=== PATIENT | male | born 1960 | race Caucasian/White ===

== ENCOUNTER 2017-01-31 07:56 | Day surgery (SDC) | payer BC ==
[2017-01-29 10:08] VITALS: BMI 28.0
[~2017-01-31 07:56] MED LIST: LACTATED RINGERS 1,000 ML IV SCH
[2017-01-31 08:18] VITALS: RESP 16; TEMP 97.8
[2017-01-31] MEDS ORDERED: LIDOCAINE 1% 20 ML VIAL (10MG/ML) FOR IV START INTRADERMA ONE (08:24)
[2017-01-31] MEDS ORDERED: PROPOFOL 10 MG/ML 20 ML VIAL IV ONE (09:16)
[2017-01-31] MEDS ORDERED: LIDOCAINE 1% INJ 10MG/ML (20 ML MDV) ONE (09:16)
--- NOTE | 2017-01-31 09:30 | P.GSHP ---
History of Present Illness H&P Date: 01/31/17 Chief Complaint: GERD, rectal bleeding Patient here today for upper and lower endoscopy. He has a history of reflux and recently was found to have heme positive stools. He admits to occasional rectal bleeding. No dysphagia. No family history of colon cancer. His last colonoscopy was normal and that was 7 years ago. Past Medical History Past Medical History: Hyperlipidemia, Hypertension Additional Past Medical History / Comment(s): GOUT History of Any Multi-Drug Resistant Organisms: None Reported Additional Past Surgical History / Comment(s): COLONOSCOPY. SINUS SX Past Anesthesia/Blood Transfusion Reactions: No Reported Reaction Past Psychological History: No Psychological Hx Reported Smoking Status: Former smoker Past Alcohol Use History: Rare Additional Past Alcohol Use History / Comment(s): QUIT SMOKING 1996 Past Drug Use History: None Reported - Past Family History Mother Family Medical History: No Reported History Medications and Allergies Home Medications Medication Instructions Recorded Confirmed Type Allopurinol [Zyloprim] 100 mg PO DAILY 01/29/17 01/31/17 History Aspirin [Adult Low Dose Aspirin EC] 81 mg PO DAILY 01/29/17 01/31/17 History Fenofibric Acid (Choline) 135 mg PO DAILY 01/29/17 01/31/17 History [Fenofibric Acid] Folic Acid 1 mg PO DAILY 01/29/17 01/31/17 History Olmesartan/Amlodipin/Hcthiazid 1 each PO DAILY 01/29/17 01/31/17 History [Yrotnqt-Ammgvm-Lplc 40-10-12.5] Allergies Allergy/AdvReac Type Severity Reaction Status Date / Time No Known Allergies Allergy Verified 01/31/17 08:12 Surgical - Exam Vital Signs Temp Pulse Resp BP Pulse Ox 97.8 F 75 16 141/70 97 01/31/17 08:17 01/31/17 08:17 01/31/17 08:17 01/31/17 08:17 01/31/17 08:17 Physical exam: General: Well-developed, well-nourished HEENT: Normocephalic, sclerae nonicteric Abdomen: Nontender, nondistended Extremities: No edema Neuro: Alert and oriented Assessment and Plan (1) Rectal bleeding Narrative/Plan: Will proceed with upper and lower endoscopy at this time. Status: Acute
--- NOTE | 2017-01-31 09:46 | P.PCN ---
Date of Procedure: 01/31/17 Procedure(s) Performed: PREOPERATIVE DIAGNOSIS: GERD, rectal bleeding POSTOPERATIVE DIAGNOSIS: Erosive esophagitis, mild gastritis, normal colon PROCEDURE: 1. EGD with biopsy 2. Colonoscopy ANESTHESIA: MAC SURGEON: Odin Alex M.D. SPECIMENS: Antrum, distal esophagus ENDOSCOPIC PROCEDURE: The patient was on the endoscopy table in the left decubitus position. The Olympus gastroscope was inserted into the oropharynx and passed under direct visualization to the region of the third portion of the duodenum. From that point the scope was slowly withdrawn inspecting all surfaces carefully. There were no neoplastic inflammatory or polypoid lesions throughout the duodenum. The pylorus was widely patent. The stomach was carefully inspected. There was gastritis present. A biopsy of the antrum took place to rule out H. pylori. Retroflexion revealed a normal hiatus. The esophagus was then carefully examined. There was mild distal esophagitis present circumferentially. This was not erosive. Biopsies were taken. There were no neoplastic inflammatory or polypoid lesions throughout the remainder of the visualized esophagus. The patient was kept on the endoscopy table in the left decubitus position. The Olympus colonoscope was inserted into the anus and passed under direct visualization to the base of the cecum. The appendiceal orifice was visualized. From that point the scope was slowly withdrawn inspecting all surfaces carefully. There were no neoplastic inflammatory or polypoid lesions throughout the cecum, ascending, transverse, descending, sigmoid and rectum. There was no diverticulosis noted. Digital rectal examination was normal. The patient was taken to the recovery room in stable condition per anesthesia guidelines. RECOMMENDATIONS: Increase fiber. Antiacid therapy. Await biopsy results. Follow colonoscopy 10 years.
[2017-01-31 10:01] VITALS: PULSE 56
[2017-01-31 10:14] VITALS: BP 120/77
== END 2017-01-31 10:23 | disposition home or self-care (01) ==
LOC: ORWHC2ENDO 07:56
PROVIDERS: ATTEND Surgery
DX: K21.0 Gastro-esophageal reflux disease with esophagitis (principal); K29.50 Unspecified chronic gastritis without bleeding; Z87.19 Personal history of other diseases of the digestive system; E78.5 Hyperlipidemia, unspecified; I10 Essential (primary) hypertension; M10.9 Gout, unspecified; Z87.891 Personal history of nicotine dependence; Z79.82 Long term (current) use of aspirin; Z79.899 Other long term (current) drug therapy
CPT/HCPCS: 88305; 88342; 45378; 43239; J2001; J2704

== ENCOUNTER → 2018-04-30 | Outpatient (CLI) | payer BC ==
--- NOTE | 2018-05-01 08:10 | US ---
EXAMINATION TYPE: US kidneys/renal and bladder DATE OF EXAM: 04/30/2018 COMPARISON: NONE CLINICAL HISTORY: R31.9 Hematuria. Hematuria EXAM MEASUREMENTS: Right Kidney: 10.2 x 4.8 x 4.5 cm Left Kidney: 10.8 x 5.2 x 5.0 cm Right Kidney: no hydronephrosis or renal masses seen Left Kidney: no hydronephrosis or renal masses seen Bladder: wnl Bilateral Jets seen: no IMPRESSION: 1. Normal renal ultrasound.
== END | disposition home or self-care (01) ==
LOC: RADUSWWP 15:56
PROVIDERS: ATTEND Internal Medicine
DX: R31.9 Hematuria, unspecified (principal)
CPT/HCPCS: 76770

== ENCOUNTER → 2018-11-05 | Outpatient (CLI) | payer BC ==
--- NOTE | 2018-11-05 19:15 | P.STRESS ---
- Stress Test Note Stress Test Results/Findings: Exam Performed: stress echo exercise Exam Date: 11/05/18 Reason for Exam: Chest Pain Height: 5 ft 9 in Weight: 94.347 kg Protocol: Stress Echo Stage: III Duration of Exercise: 10:09 Resting Heart Rate: 75 Resting Blood Pressure: 135/89 Maximum Achieved Heart Rate: 142 Maximum Achieved Blood Pressure: 193/99 85% PMHR: 138 100% PMHR: 162 METS: 11.5 Technologist Comment: Stress Test Results/Findings: This is a 58-year-old gentleman with history of hypertension, hypercholesteremia , family history, being evaluated for symptoms of chest pain and shortness of breath. Patient also has history of smoking. Stress data: Baseline EKG showed sinus rhythm with normal MT interval and QRS duration. Frequent PVCs are noted which are unifocal and the resting EKG. Blood pressure at rest is 135/89 with pulse rate of 75. Patient walked on the Taye protocol for 10 minutes and 9 seconds achieving a maximal heart rate of 142 with a blood pressure of 193/99. Patient continued to have frequent PVCs with occasional triplets. And also couplets. EKGs taken during and after exercise showed about [address] segment depression in inferolateral leads. The changes persisted for about 5 to 6 minutes into the post exercise. Echo data: Baseline echo images show normal wall motion and thickening. Exercise echo images showed augmentation of wall motion and thickening in all segments. Final impression #1. Baseline EKG showed mild ST-T abnormal movements in the inferolateral leads. Exercise EKG showed augmentation of the EKG changes in inferolateral leads with about 1-[address] segments.Thechangesarefelttobenonspecific because of baseline changes. Pocket. This could be secondary to hypertensive response to exercise. #2. Negative stress echo. #3. Cardiac arrhythmia and follow-up frequent PVCs couplets and triplets that persisted throughout the stress test.
== END | disposition home or self-care (01) ==
LOC: RADNMMAIN 09:00
PROVIDERS: ATTEND Internal Medicine
DX: R07.9 Chest pain, unspecified (principal)
CPT/HCPCS: 93351

== ENCOUNTER → 2020-04-10 | Outpatient (CLI) | payer BC ==
[2020-04-10 11:38] LABS: Basophils % (A) 0 %; Eosinophils # (A) 0.2 k/uL (0-0.7); Eosinophils % (A) 3 %; HCT 47.3 % (39.0-53.0); HGB 16.1 gm/dL (13.0-17.5); Lymphocytes # (A) 2.1 k/uL (1.0-4.8); Lymphocytes % (A) 27 %; MCHC 33.9 g/dL (31.0-37.0); MCV 85.5 fL (80.0-100.0); Mean Platelet Volume 7.8; Monocytes # (A) 0.6 k/uL (0-1.0); Monocytes % (A) 8 %; Neutrophils # (A) 4.6 k/uL (1.3-7.7); Neutrophils % (A) 59 %; Platelet Count 243 k/uL (150-450); RBC 5.53 m/uL (4.30-5.90); RDW 12.7 % (11.5-15.5); WBC 7.8 k/uL (3.8-10.6)
[2020-04-10 20:12] LABS: African American GFR (CKD) 75.7 (60.0-200.0); Albumin 4.7 g/dL (3.80-4.90); Albumin/Globulin Ratio 1.88 (1.60-3.17); Anion Gap 11.2 mmol/L (4.00-12.00); BUN/Creat Ratio 18.33 Ratio (12.00-20.00); Calcium 10.3 mg/dL (8.7-10.3); Carbon Dioxide 24.8 mmol/L (21.6-31.8); Chol/HDL Ratio 4.63; Globulin 2.5 g/dL (1.6-3.3); LDL Cholesterol,Calculated 118.6 mg/dL (0.0-131.0); Non-African American GFR(CKD) 65.3 (60.0-200.0); Potassium 3.7 mmol/L (3.5-5.5); Total Bilirubin 0.4 mg/dL (0.2-1.2); Total Protein 7.2 g/dL (6.2-8.2); Uric Acid 5.5 mg/dL (3.7-8.7); VLDL Calculation 30.4 mg/dL (5.00-40.00)
== END | disposition home or self-care (01) ==
LOC: LABWHC1 09:56
PROVIDERS: ATTEND Internal Medicine
DX: E78.2 Mixed hyperlipidemia (principal); I10 Essential (primary) hypertension; M10.00 Idiopathic gout, unspecified site
CPT/HCPCS: 36415; 80053; 80061; 84443; 84550; 85025

== ENCOUNTER → 2021-12-20 | Outpatient (CLI) | payer BC ==
--- NOTE | 2021-12-20 12:20 | US ---
EXAMINATION TYPE: US liver DATE OF EXAM: 12/20/2021 COMPARISON: NONE CLINICAL HISTORY: 61-year-old male R74.01 ELEVATED LIVER TRANSAMINASE LEVELS. TECHNIQUE: Multiple sonographic images of the right upper quadrant are obtained. FINDINGS: EXAM MEASUREMENTS: Liver Length: 18.2 cm Gallbladder Wall: 0.2 cm CBD: 0.4 cm Right Kidney: 11.3 x 4.9 x 5.1 cm Extensive overlying bowel gas Pancreas: Obscured by bowel gas Liver: Mildly enlarged. Markedly attenuating. No focal lesion is seen. Gallbladder: No abnormal distention, wall thickening, or pericholecystic fluid. Couple small gallsto alexus are present. Probable polyp measuring 0.5 x 0.3 x 0.4cm Evidence for sonographic Duffy's sign: no CBD: wnl Right Kidney: wnl, no hydronephrosis. IMPRESSION: 1. Mild hepatomegaly (18.2 cm) with moderate to severe hepatic steatosis. No focal lesion identified. 2. A couple small gallstones. Suspect a 5 mm gallbladder wall polyp as well. Six-month follow-up gall bladder ultrasound to reassess. 3. No biliary ductal dilatation.
== END | disposition home or self-care (01) ==
LOC: RADUSWWP 09:17
PROVIDERS: ATTEND Internal Medicine
DX: R74.01 Elevation of levels of liver transaminase levels (principal); R16.0 Hepatomegaly, not elsewhere classified; K80.80 Other cholelithiasis without obstruction
CPT/HCPCS: 76705

== ENCOUNTER 2024-01-28 07:19 | Day surgery (SDC) | payer BC ==
[2024-01-26 15:46] VITALS: BMI 32.5
[2024-01-28] MEDS: LACTATED RINGERS 1,000 ML IV SCH (07:51)
[2024-01-28 08:18] VITALS: RESP 16; TEMP 97.9
[2024-01-28] MEDS ORDERED: PROPOFOL 10 MG/ML 20 ML VIAL IV ONE (08:27)
[2024-01-28] MEDS ORDERED: LIDOCAINE 1% INJ 10MG/ML (20 ML MDV) ONE (08:27)
--- NOTE | 2024-01-28 08:58 | P.PCN ---
Date of Procedure: 01/28/24 Procedure(s) Performed: Brief history: Patient is a pleasant 63-year-old white male scheduled for an elective upper endoscopy as well as colonoscopy as a part of evaluation of GERD and screening for colon cancer Procedure performed: Esophagogastroduodenoscopy with biopsy Colonoscopy Preoperative diagnosis: GERD Screening for colon cancer Anesthesia: MAC Procedure: After informed consent was obtained from the patient was brought into the endoscopy unit and IV sedation was administered by anesthesia under continuous monitoring. Initially upper endoscopy was done. The Olympus GF 160 video endoscope was inserted inserted into the mouth and esophagus intubated without any difficulty and was gradually advanced into the stomach and duodenum and carefully examined. The bulb and second part of the duodenum appeared normal. The scope was then withdrawn into the stomach adequately insufflated with air and upon careful examination the antrum had mild gastritis and biopsies were done from this area. Mucosa of the body, cardia and fundus appeared normal. The scope was then withdrawn into the esophagus. The GE junction was located at 40 cm to the incisors. It appeared regular with superficial erosions consistent with LA grade B reflux esophagitis At this time the patient continued to remain sedation. Initial digital rectal examination was normal. Olympus CF 160 video colonoscope was then inserted into the rectum and gradually advanced to the cecum without any difficulty. Careful examination was performed as the scope was gradually being withdrawn. The prep was excellent. The cecum, ascending colon, transverse colon, descending colon, sigmoid colon and rectum appeared normal. Retroflexion was performed in the rectum and no lesions were noted. Patient tolerated the procedure well. Impression: 1. Upper endoscopy revealed mild antral gastritis, LA grade B reflux esophag itis 2. Colonoscopy was within normal limits with no evidence of colorectal neoplasia Recommendations: Findings of this examination were discussed with the patient as well as his family. He was advised to follow with the biopsy results. Recommend omeprazole 20 mg daily and follow antireflux measures. Repeat colonoscopy in 10 years.
[2024-01-28 09:41] VITALS: BP 116/72; PULSE 50
== END 2024-01-28 09:55 | disposition home or self-care (01) ==
LOC: ORWHC2ENDO 07:19
PROVIDERS: ATTEND Internal Medicine Gastroenterology
DX: Z12.11 Encounter for screening for malignant neoplasm of colon (principal); K29.50 Unspecified chronic gastritis without bleeding; K21.00 Gastro-esophageal reflux disease with esophagitis, without bleeding; I10 Essential (primary) hypertension; E78.5 Hyperlipidemia, unspecified; M10.9 Gout, unspecified; L40.9 Psoriasis, unspecified; Z87.891 Personal history of nicotine dependence; Z79.899 Other long term (current) drug therapy; Z98.890 Other specified postprocedural states
CPT/HCPCS: 88305; 45378; 43239; J2001; J2704

== ENCOUNTER → 2024-06-02 | Outpatient (CLI) | payer BC ==
--- NOTE | 2024-06-02 14:23 | US ---
EXAMINATION TYPE: US kidneys/renal and bladder DATE OF EXAM: 06/02/2024 COMPARISON: Renal ultrasound 2017, liver ultrasound 12/20/2021 CLINICAL INDICATION: Male, 64 years old with history of N18.31 STAGE 3A CHRONIC KIDNEY DISEASE; EXAM MEASUREMENTS: Right Kidney: 11.0 x 4.9 x 4.5 cm Left Kidney: 12.1 x 5.2 x 4.6 cm Right Kidney: No hydronephrosis or masses seen Left Kidney: Hypoechoic area upper pole measuring 2.4 x 2.6 x 2.1 cm Bladder: Anechoic Bilateral Jets seen: No There is no evidence for hydronephrosis at this point in time. No nephrolithiasis is seen. Left upp er pole 2.6 cm simple cyst. No solid masses are identified. Cortical medullary differentiation is ma intained bilaterally. The urinary bladder is anechoic. Bilateral ureteral jets are not seen. The vis ualized liver appears diffusely hyperechoic. IMPRESSION: 1. No hydronephrosis or nephrolithiasis. 2. Left renal simple cyst. 3. Hepatic steatosis.
== END | disposition home or self-care (01) ==
LOC: RADUSWWP 13:48
PROVIDERS: ATTEND Internal Medicine
DX: N18.31 Chronic kidney disease, stage 3a (principal); K76.0 Fatty (change of) liver, not elsewhere classified; N28.1 Cyst of kidney, acquired
CPT/HCPCS: 76770

== ENCOUNTER → 2024-11-19 | Outpatient (CLI) | payer BC ==
--- NOTE | 2024-11-20 12:25 | US ---
EXAMINATION TYPE: US kidneys/renal and bladder DATE OF EXAM: 11/19/2024 COMPARISON: CLINICAL INDICATION: Male, 64 years old with history of N18.31 STAGE 3A CHRONIC KIDNEY DISEASE; Abnor mal labs TECHNIQUE: Grayscale imaging of the bilateral kidneys and urinary bladder: FINDINGS: EXAM MEASUREMENTS: Right Kidney: 10.7 x 4.8 x 5.0 cm Left Kidney: 11.6 x 4.7 x 5.0 cm Right Kidney: Inferior medial anechoic lesion compatible with a cyst measuring 1.4 x 1.3 x 1.3 cm Left Kidney: Medial superior anechoic lesion compatible with a cyst measuring 2.8 x 2.2 x 2.9 cm Bladder: distended, anechoic Bilateral Jets not seen There is no evidence for hydronephrosis at this point in time. No nephrolithiasis is seen. No jase s are identified. The urinary bladder is anechoic. IMPRESSION: 1. Bilateral renal cysts. [facility], , 11/20/2024 12:23 PM
== END | disposition home or self-care (01) ==
LOC: RADUSWWP 15:12
PROVIDERS: ATTEND Internal Medicine
DX: N18.31 Chronic kidney disease, stage 3a (principal); N28.1 Cyst of kidney, acquired
CPT/HCPCS: 76770